=== PATIENT | male | born 1995 | race Caucasian/White ===

== ENCOUNTER 2019-01-11 20:24 | Emergency (ER) | payer BC ==
[2019-01-11] MEDS: LORAZEPAM 1 MG TAB PO (21:56)
== END 2019-01-11 22:12 | disposition home or self-care (01) ==
LOC: FTE 20:24
DX: F41.9 Anxiety disorder, unspecified (principal); F17.210 Nicotine dependence, cigarettes, uncomplicated; Z85.828 Personal history of other malignant neoplasm of skin
CPT/HCPCS: 93005; 99283-25